=== PATIENT | male | born 1950 | race Caucasian/White ===

== ENCOUNTER 2019-02-23 17:23 | Emergency (ER) | payer MEDICARE, OTHER ==
[2019-02-23] MEDS ORDERED: METOPROLOL SUCCINATE 25 MG TABLET PO STA (18:11)
--- NOTE | 2019-02-23 18:14 | ED Physician Documentation ---
History of Present Illness - Stated complaint Stated Complaint: BP HIGH - Chief complaint Chief Complaint: Cardiac - History obtained from History obtained from: Patient, Family, Other (He declined range rider and asked family to do so) - History of Present Illness Timing: Today (69-year-old gent with history of hypertension, atrial fibrillation, coronary disease. He is visiting locally, and ran out of his metoprolol about a week ago and thusly has uncontrolled blood pressures at home. He has no specific complaints, no chest pain, no trouble breathing, no problems urinating, no pedal edema. He is not out of any of his other medications.) Review of Systems Constitutional: denies: Fever, Chills Cardiac: denies: Chest pain / pressure, Palpitations Respiratory: denies: Dyspnea, Cough PD PAST MEDICAL HISTORY - Past Medical History Past Medical History: Yes Cardiovascular: Hypertension, High cholesterol, NE Neuro: None HEENT: Chronic hearing loss - Past Surgical History Past Surgical History: Yes - Present Medications Home Medications: Ambulatory Orders Medication Instructions Recorded Confirmed Albuterol Sulfate [Proair 90 mcg IH PRN PRN 02/23/19 02/23/19 Respiclick] Amiodarone [Pacerone] 200 mg PO DAILY 02/23/19 02/23/19 Furosemide 20 mg PO DAILY 02/23/19 02/23/19 Levothyroxine [Synthroid] 88 mcg PO QDAC 02/23/19 02/23/19 Metoprolol Succinate 25 mg PO BID 02/23/19 02/23/19 Metoprolol Succinate 25 mg PO BID #60 tab.er.24h 02/23/19 Omeprazole 20 mg PO DAILY 02/23/19 02/23/19 Warfarin [Coumadin] 2 mg PO DAILY 02/23/19 02/23/19 - Allergies Allergies/Adverse Reactions: Allergies Allergy/AdvReac Type Severity Reaction Status Date / Time No Known Drug Allergies Allergy Verified 02/23/19 17:36 - Social History Does the pt smoke?: No Smoking Status: Never smoker PD ED PE NORMAL - Vitals Vital signs reviewed: Yes - General General: Alert and oriented X 3, No acute distress - Cardiac Cardiac: RRR, Other (loud s2) - Respiratory Respiratory: No respiratory distress, Clear bilaterally - Abdomen Abdomen: Non tender - Extremities Extremities: No edema, No calf tenderness / cord - Neuro Neuro: Alert and oriented X 3, Normal speech Results - Vitals Vitals: Vital Signs - 24 hr 02/23/19 17:32 Temperature 36.0 C L Heart Rate 85 Respiratory 16 Rate Blood Pressure 158/135 H O2 Saturation 98 Oxygen O2 Source Room air - Labs Labs: Laboratory Tests 02/23/19 02/23/19 18:01 18:01 PT 36.3 H INR 3.3 H Sodium 142 Potassium 3.9 Chloride 109 Carbon Dioxide 25 Anion Gap 8.0 BUN 20 Creatinine 1.7 H Estimated GFR (MDRD) 40 L Glucose 110 H Calcium 8.7 Departure - Departure Disposition: Home, Self Care Clinical Impression: Uncontrolled hypertension Condition: Good Record reviewed to determine appropriate education?: Yes Health Concerns: high blood pressure, out of meds Plan of Treatment: Refilled metoprolol, check blood pressure at home and return for reevaluation if it remains greater than 160 systolic over the next few days. Otherwise follow- up with your doctor on return home. Your INR today is slightly high at 3.3. With your next dose of warfarin take only a half dose. Prescriptions: Metoprolol Succinate 25 mg PO BID #60 tab.er.24h
[2019-02-23 18:16] LABS: INR 3.3 (0.8-1.2); PT - PROTHROMBIN TIME 36.3 secs (9.9-12.6)
[2019-02-23 18:24] LABS: CALCIUM 8.7 mg/dL (8.5-10.3); CREATININE 1.7 mg/dL (0.6-1.2)
[2019-02-23 19:03] VITALS: BP 137/79
== END 2019-02-23 19:04 | disposition home or self-care (01) ==
LOC: ED 17:23
DX: I10 Essential (primary) hypertension (principal); I25.10 Atherosclerotic heart disease of native coronary artery without angina pectoris; I25.2 Old myocardial infarction; E78.00 Pure hypercholesterolemia, unspecified
CPT/HCPCS: 36415; 80048; 85610; 99283; A9270